=== PATIENT | male | born 1945 | race Caucasian/White ===

== ENCOUNTER 2018-01-10 08:30 | Emergency (ER) | payer MEDICARE, BC ==
[2018-01-10 08:58] VITALS: BP 120/60
--- NOTE | 2018-01-10 09:21 | EDM.PDOC ---
ED HPI GENERAL MEDICAL PROBLEM - General Chief Complaint: Skin Complaint Stated Complaint: tick bite Time Seen by Provider: 01/10/18 09:10 Source of Information: Reports: Patient History Limitations: Reports: No Limitations - History of Present Illness INITIAL COMMENTS - FREE TEXT/NARRATIVE: 72 yo male pulled a deer tick off of his upper back this morning that had been on for less than 12 hrs. Is concerned about a tiny black spot still present at the site of the tick attachment. Tetanus is UTD. Onset: Today Onset Date: 01/10/18 Duration: Hour(s):, Constant Location: Reports: Back Quality: Reports: Other (no pain) Severity: Mild Improves with: Reports: None Worsens with: Reports: None Context: Reports: Other (deer tick bite) Associated Symptoms: Reports: No Other Symptoms. 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 Dermatologic History: Reports: Other (See Below) Other Dermatologic History: history of tick bite and lymes disease 2005 - Past Surgical History Other Musculoskeletal Surgeries/Procedures:: 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 Social & Family History - Family History Family Medical History: Noncontributory - Tobacco Use Smoking Status *Q: Never Smoker - Caffeine Use Caffeine Use: Reports: Soda Other Caffeine Use: Pepsi once in a while - Alcohol Use Days Per Week of Alcohol Use: 7 Number of Drinks Per Day: 1 Total Drinks Per Week: 7 - Recreational Drug Use Recreational Drug Use: No ED ROS GENERAL - Review of Systems Review Of Systems: See Below Constitutional: Reports: No Symptoms HEENT: Reports: No Symptoms Respiratory: Reports: No Symptoms Cardiovascular: Reports: No Symptoms GI/Abdominal: Reports: No Symptoms : Reports: No Symptoms Musculoskeletal: Reports: No Symptoms Skin: Reports: Change in Color (tiny black spot at site of tick attachment.) Neurological: Reports: No Symptoms ED EXAM, SKIN/RASH Exam: See Below Exam Limited By: No Limitations General Appearance: Alert, WD/WN, No Apparent Distress Ears: Normal External Exam Nose: Normal Inspection, Normal Mucosa, No Blood Throat/Mouth: Normal Inspection, Normal Lips, Normal Oropharynx, Normal Voice Head: Atraumatic, Normocephalic Neck: Normal Inspection Respiratory/Chest: No Respiratory Distress, No Accessory Muscle Use Neurological: Alert, Oriented, CN II-XII Intact, Normal Cognition, No Motor/ Sensory Deficits Psychiatric: Normal Affect, Normal Mood Skin: Warm, Dry, Intact, Normal Color, No Rash, Other (tiny black spot at site of tick attachment.) Location, Skin: Back Characteristics: Erythematous (black spot has minimal surrounding redness.) Lymphatic: No Adenopathy Course - Vital Signs Last Recorded V/S: Last Vital Signs Temp 35.7 C 01/10/18 08:57 Pulse 74 01/10/18 08:57 Resp 14 01/10/18 08:57 BP 120/60 01/10/18 08:57 Pulse Ox 98 01/10/18 08:57 Departure - Departure Time of Disposition: 09:20 Disposition: Home, Self-Care 01 Condition: Good Clinical Impression: Tick bite of back Qualifiers: Encounter type: initial encounter Qualified Code(s): S30.860A - Insect bite ( nonvenomous) of lower back and pelvis, initial encounter; W57.XXXA - Bitten or stung by nonvenomous insect and other nonvenomous arthropods, initial encounter - Discharge Information Referrals: Hieu Palmer MD [Primary Care Provider] -
== END 2018-01-10 09:29 | disposition home or self-care (01) ==
LOC: JP.ED 08:30
DX: S20.469A Insect bite (nonvenomous) of unspecified back wall of thorax, initial encounter (principal); W57.XXXA Bitten or stung by nonvenomous insect and other nonvenomous arthropods, initial encounter
CPT/HCPCS: 99282

== ENCOUNTER 2019-01-21 22:38 | Emergency (ER) | payer MEDICARE, BC ==
[2019-01-21 22:56] VITALS: BP 143/76
[2019-01-21] MEDS ORDERED: Doxycycline 100 MG Cap PO ONE (23:07)
--- NOTE | 2019-01-21 23:10 | EDM.PDOC ---
ED HPI GENERAL MEDICAL PROBLEM - General Chief Complaint: Bite:Animal, Insect Stated Complaint: WOOD TICK Time Seen by Provider: 01/21/19 23:07 Source of Information: Reports: Patient, RN Notes Reviewed History Limitations: Reports: No Limitations - History of Present Illness INITIAL COMMENTS - FREE TEXT/NARRATIVE: 73-year-old gentleman presents emergency department today with a tick attached to his penis that he fell earlier today no symptoms at this time denies pain Pain Score (Numeric/FACES): 0 - Related Data Allergies Allergy/AdvReac Type Severity Reaction Status Date / Time No Known Allergies Allergy Verified 01/21/19 22:54 Home Meds: Home Meds NK [No Known Home Meds] 01/11/15 [History] Past Medical History HEENT History: Reports: Impaired Vision Genitourinary History: Reports: Prostate Disorder Musculoskeletal History: Reports: Other (See Below) Other Musculoskeletal History: 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 Dermatologic History: Reports: Other (See Below) Other Dermatologic History: history of tick bite and lymes disease 2005 - Infectious Disease History Infectious Disease History: Reports: Chicken Pox, Measles - Past Surgical History GI Surgical History: Reports: Appendectomy Musculoskeletal Surgical History: Reports: Other (See Below) Other Musculoskeletal Surgeries/Procedures:: 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 Social & Family History - Family History Family Medical History: Noncontributory - Tobacco Use Smoking Status *Q: Never Smoker - Caffeine Use Caffeine Use: Reports: Soda Other Caffeine Use: Pepsi once in a while - Recreational Drug Use Recreational Drug Use: No ED ROS GENERAL - Review of Systems Review Of Systems: See Below Skin: Reports: Wound ED EXAM, ANIMAL BITE - Physical Exam Exam: See Below Text/Narrative:: Examination the penis he does have a deer tick attached this is removed with a splinter forceps completely intact it is on the base of the penis Exam Limited By: No Limitations General Appearance: Alert, WD/WN, No Apparent Distress Course - Vital Signs Last Recorded V/S: Last Vital Signs Temp 98.5 F 01/21/19 22:56 Pulse 76 01/21/19 22:56 Resp 16 01/21/19 22:56 BP 143/76 H 01/21/19 22:56 Pulse Ox 96 01/21/19 22:56 - Orders/Labs/Meds Orders: Active Orders 24 hr Category Date Time Status Doxycycline [Vibramycin] Med 01/21/19 23:07 Once 200 mg PO ONETIME ONE Departure - Departure Time of Disposition: 23:09 Disposition: Home, Self-Care 01 Condition: Fair Clinical Impression: Tick bite Qualifiers: Encounter type: initial encounter Qualified Code(s): W57.XXXA - Bitten or stung by nonvenomous insect and other nonvenomous arthropods, initial encounter - Discharge Information Referrals: Talha Yang MD [Primary Care Provider] - Additional Instructions: Please followup with your primary care provider in 7-10 days if not better, please call return to the emergency department with worsening of symptoms. - My Orders Last 24 Hours: My Active Orders 01/21/19 23:07 Doxycycline [Vibramycin] 200 mg PO ONETIME ONE - Assessment/Plan Last 24 Hours: My Active Orders 01/21/19 23:07 Doxycycline [Vibramycin] 200 mg PO ONETIME ONE Plan: Assessment Acuity = acute Site and laterality = tick bite penis Etiology = Ixodes scapularis Manifestations = none Location of injury = Home Lab values = none Plan Treatment doxycycline 200 mg 1 follow-up primary care in 7-10 days if not better This note was dictated using [employer] voice recognition software please call with any questions on syntax or grammar.
== END 2019-01-21 23:19 | disposition home or self-care (01) ==
LOC: JP.ED 22:38
DX: S30.862A Insect bite (nonvenomous) of penis, initial encounter (principal); W57.XXXA Bitten or stung by nonvenomous insect and other nonvenomous arthropods, initial encounter
CPT/HCPCS: 99282; A9270

== ENCOUNTER 2020-12-25 16:46 | Emergency (ER) | payer MEDICARE, BC ==
[2020-12-25 17:38] VITALS: BP 156/86; PULSE 77
--- NOTE | 2020-12-25 17:54 | EDM.PDOC ---
ED HPI GENERAL MEDICAL PROBLEM - General Chief Complaint: Neurological Problem Stated Complaint: NAUSEA, DIZZY, SWEATING Time Seen by Provider: 12/25/20 17:53 Source of Information: Reports: Patient History Limitations: Reports: No Limitations - History of Present Illness INITIAL COMMENTS - FREE TEXT/NARRATIVE: Braydon presents today with complaints of not feeling right. 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 the loft was hot. He states he became dizzy, the room was moving, he had double vision, felt weak and laid down. He states he felt a little better after laying down for a few minutes on the floor and his friend opened some windows. He then got up, went down the stairs, had some cold water. He became nauseated, vomited. He states his friend then left and he went to his house, where he noticed he had slurred speech. His report slurred speech as well. He again did not feel well, double vision, nausea and lady down on the floor. He reports he now has a headache to the forehead 08/15. He denies any other vision changes, change in hearing. He denies LOC, his denies LOC. He stopped use of ASA September, stated it was okay per cardiology. He denies fever, chills, change in bowel/bladder or other concerns. 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 Dermatologic History: Reports: Other (See Below) Other Dermatologic History: history of tick bite and lymes disease 2005 and again since then - Infectious Disease History Infectious Disease History: Reports: Chicken Pox, Measles - Past Surgical History Cardiovascular Surgical History: Reports: Valve Replacement GI Surgical History: Reports: Appendectomy Musculoskeletal Surgical History: Reports: Other (See Below) Other Musculoskeletal Surgeries/Procedures:: 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 Social & Family History - Family History Family Medical History: No Pertinent Family History - Tobacco Use Tobacco Use Status *Q: Never Tobacco User - Caffeine Use Caffeine Use: Reports: None Other Caffeine Use: Pepsi once in a while - Recreational Drug Use Recreational Drug Use: No ED ROS GENERAL - Review of Systems Review Of Systems: See Below Constitutional: Reports: Weakness HEENT: Reports: Vision Change (double vision that comes and goes) Respiratory: Reports: No Symptoms Cardiovascular: Reports: No Symptoms Endocrine: Reports: No Symptoms GI/Abdominal: Reports: Nausea, Vomiting : Reports: No Symptoms Musculoskeletal: Reports: No Symptoms Skin: Reports: No Symptoms Neurological: Reports: Dizziness, Headache, Weakness, Change in Speech, Other (pre-syncopal) Psychiatric: Reports: No Symptoms Hematologic/Lymphatic: Reports: No Symptoms Immunologic: Reports: No Symptoms ED EXAM, DIZZINESS - Physical Exam Exam: See Below Exam Limited By: No Limitations General Appearance: Alert, WD/WN, No Apparent Distress Eye Exam: Bilateral Eye: EOMI, Normal Inspection, PERRL Ears: Normal External Exam, Normal Canal, Hearing Grossly Normal, TM Obscured by Cerumen (bilateral ears) Nose: Normal Inspection, Normal Mucosa, No Blood Throat/Mouth: Normal Inspection, Normal Lips, Normal Gums, Normal Voice, No Airway Compromise Head Exam: Atraumatic, Normocephalic Vertigo: No: reproducible Neck: Normal Inspection, Supple, Non-Tender, Full Range of Motion Respiratory/Chest: No Respiratory Distress, Lungs Clear, Normal Breath Sounds, No Accessory Muscle Use, Chest Non-Tender. No: Crackles, Rales, Rhonchi, Wheezing Cardiovascular: Normal Peripheral Pulses, Regular Rate, Rhythm, No Edema, No Gallop, No Murmur, No Rub, Other (loud heart tones/valve) GI/Abdominal: Normal Bowel Sounds, Soft, Non-Tender, No Organomegaly, No Distention, No Mass. No: Guarding, Rigid, Rebound, Tender Neurological: Alert, Normal Mood/Affect, Normal Plantar Flexion, Normal Gait, Normal Reflexes, No Motor/Sensory Deficits DTR: 2+: Patella (R), Patella (L) Back Exam: Normal Inspection, Full Range of Motion. No: CVA Tenderness (R), CVA Tenderness (L) Extremities: Normal Inspection, Normal Range of Motion, Non-Tender, No Pedal Edema, Normal Capillary Refill Psychiatric: Normal Affect, Flat Affect Skin Exam: Warm, Dry, Intact, Normal Color, No Rash #1 Interpretation EKG Date: 12/25/20 Time: 17:53 Rhythm: NSR Rate (Beats/Min): 80 [place]: Normal P-Wave: Present QRS: Normal ST-T: Normal QT: Normal Course - Vital Signs Last Recorded V/S: Last Vital Signs Temp 36.8 C 12/25/20 16:59 Pulse 77 12/25/20 17:25 Resp 12 12/25/20 17:25 BP 156/86 H 12/25/20 17:25 Pulse Ox 99 12/25/20 17:25 - Orders/Labs/Meds Orders: Active Orders 24 hr Category Date Time Status EKG 12 Lead [EK] Routine Ther 12/25/20 17:53 Ordered Labs: Laboratory Tests 12/25/20 12/25/20 12/25/20 Range/Units 18:04 18:55 18:55 WBC 8.4 (4.5-11.0) K/uL RBC 4.96 (4.30-5.90) M/uL Hgb 14.8 (12.0-15.0) g/dL Hct 44.9 (40.0-54.0) % MCV 91 (80-98) fL MCH 30 (27-31) pg MCHC 33 (32-36) % Plt Count 162 (150-400) K/uL Neut % (Auto) 71.1 H (36-66) % Lymph % (Auto) 16.3 L (24-44) % [place] % (Auto) 11.9 H (2-6) % Eos % (Auto) 0.6 L (2-4) % Baso % (Auto) 0.1 (0-1) % PT (9.5-12.0) sec INR (0.80-1.20) APTT (27.0-36.0) sec Sodium 141 (140-148) mmol/L Potassium 4.2 (3.6-5.2) mmol/L Chloride 103 (100-108) mmol/L Carbon Dioxide 30 (21-32) mmol/L Anion Gap 8.2 (5.0-14.0) mmol/L BUN 28 H (7-18) mg/dL Creatinine 1.3 (0.8-1.3) mg/dL Est Cr Clr Drug Dosing 50.68 mL/min Estimated GFR (MDRD) 54 L (>60) Glucose 97 (74-106) mg/dL Calcium 8.8 (8.5-10.1) mg/dL Urine Color Yellow (YELLOW) Urine Appearance Clear (CLEAR) Urine pH 7.0 (5.0-8.0) Ur Specific [place] 1.025 (1.008-1.030) Urine Protein Negative (NEGATIVE) mg/dL Urine Glucose (UA) Negative (NEGATIVE) mg/dL Urine Ketones Negative (NEGATIVE) mg/dL Urine Occult Blood Negative (NEGATIVE) Urine Nitrite Negative (NEGATIVE) Urine Bilirubin Negative (NEGATIVE) Urine Urobilinogen 0.2 (0.2-1.0) EU/dL Ur Leukocyte Esterase Negative (NEGATIVE) Urine RBC 0-5 (0-5) Urine WBC 0-5 (0-5) Ur Epithelial Cells Rare Amorphous Sediment Not seen Urine Bacteria Not seen Urine Mucus Not seen 12/25/20 Range/Units 18:55 WBC (4.5-11.0) K/uL RBC (4.30-5.90) M/uL Hgb (12.0-15.0) g/dL Hct (40.0-54.0) % MCV (80-98) fL MCH (27-31) pg MCHC (32-36) % Plt Count (150-400) K/uL Neut % (Auto) (36-66) % Lymph % (Auto) (24-44) % [place] % (Auto) (2-6) % Eos % (Auto) (2-4) % Baso % (Auto) (0-1) % PT 10.9 (9.5-12.0) sec INR 1.00 (0.80-1.20) APTT 24.7 L (27.0-36.0) sec Sodium (140-148) mmol/L Potassium (3.6-5.2) mmol/L Chloride (100-108) mmol/L Carbon Dioxide (21-32) mmol/L Anion Gap (5.0-14.0) mmol/L BUN (7-18) mg/dL Creatinine (0.8-1.3) mg/dL Est Cr Clr Drug Dosing mL/min Estimated GFR (MDRD) (>60) Glucose (74-106) mg/dL Calcium (8.5-10.1) mg/dL Urine Color (YELLOW) Urine Appearance (CLEAR) Urine pH (5.0-8.0) Ur Specific [place] (1.008-1.030) Urine Protein (NEGATIVE) mg/dL Urine Glucose (UA) (NEGATIVE) mg/dL Urine Ketones (NEGATIVE) mg/dL Urine Occult Blood (NEGATIVE) Urine Nitrite (NEGATIVE) Urine Bilirubin (NEGATIVE) Urine Urobilinogen (0.2-1.0) EU/dL Ur Leukocyte Esterase (NEGATIVE) Urine RBC (0-5) Urine WBC (0-5) Ur Epithelial Cells Amorphous Sediment Urine Bacteria Urine Mucus Patient lab work reviewed, mild dehydration noted. No other acute findings. Meds: Medications Discontinued Medications Generic Name Dose Route Start Last Admin Trade Name Freq PRN Reason Stop Dose Admin Sodium Chloride 1,000 mls @ 150 mls/hr 12/25/20 18:30 12/25/20 18:36 Normal Saline IV 150 mls/hr ASDIRECTED ZUHAIR Administration Ondansetron HCl 4 mg 12/25/20 18:23 Ondansetron 4 Mg/2 Ml Sdv IVPUSH 12/25/20 18:24 ONETIME ONE - Radiology Interpretation Free Text/Narrative:: CT head without IV contrast shows no acute findings. - Re-Assessments/Exams Free Text/Narrative Re-Assessment/Exam: 12/25/20 19:25 Discussed lab work, negative head CT with Dr. Rose, patient and his . They are all in agreement with plan. We will provide him 1L normal saline for hydration. He will take ASA 325mg PO daily and follow up with his primary in 7 to 10 days. Patient in agreement with plan. Departure - Departure Time of Disposition: 19:43 Disposition: DC/Tfer to [facility] Condition: Good Clinical Impression: Dehydration, TIA (transient ischemic attack) - Discharge Information *PRESCRIPTION DRUG MONITORING PROGRAM REVIEWED*: No *COPY OF PRESCRIPTION DRUG MONITORING REPORT IN PATIENT ARMANDO: No Instructions: Transient Ischemic Attack, [id number], Dehydration, Adult, [id number] Referrals: Talha Yang MD [Primary Care Provider] - Forms: ED Department Discharge Additional Instructions: You have been evaluated and treated for TIA and dehydration. Take ASA 325mg by mouth daily with food. Work on increased water intake to 80-100oz per day to stay hydrated. Follow up with Dr. Yang and neurology as he determines. Return at any time for issues, worsening or concerns. Sepsis Event Note (ED) - Evaluation Sepsis Screening Result: No Definite Risk - Focused Exam Vital Signs: Vital Signs Temp Pulse Resp BP Pulse Ox 12/25/20 17:25 77 12 156/86 H 99 12/25/20 16:59 36.8 C 67 13 141/61 H 99 - My Orders Last 24 Hours: My Active Orders 12/25/20 17:53 EKG 12 Lead [EK] Routine - Assessment/Plan Last 24 Hours: My Active Orders 12/25/20 17:53 EKG 12 Lead [EK] Routine Assessment:: Dehydration, TIA (transient ischemic attack) Plan: Patient evaluated and treated for TIA and dehydration. Take ASA 325mg by mouth daily with food. Work on increased water intake to 80-100oz per day to stay hydrated. Follow up with Dr. Yang and neurology as he determines. Return at any time for issues, worsening or concerns.
[2020-12-25] MEDS ORDERED: Ondansetron 4 MG/2 ML SDV IVPUSH ONE (18:23)
[2020-12-25] MEDS ORDERED: Sodium Chloride 0.9% 1,000 ML IV SCH (18:30)
--- NOTE | 2020-12-25 19:11 | CRLCT ---
Indication: Dizziness. Pre syncopal episode. Double vision. Technique: Multiple contiguous axial images were obtained from the skullbase to the vertex without intravenous contrast enhancement. Please note that all CT scans at this facility use dose modulation, iterative reconstruction, and/or weight-based dosing when appropriate to reduce radiation dose to as low as reasonably achievable. Comparison: None Findings: The ventricles are symmetric and normal in size and morphology. The basal cisterns are widely patent. No intra-axial or extra-axial hemorrhage is identified. No mass, mass effect or midline shift is seen. The bony calvarium is intact. The visualized paranasal sinuses and mastoid air cells are clear. Impression: No acute intracranial process Please note that all CT scans at this facility use dose modulation, iterative reconstruction, and/or weight-based dosing when appropriate to reduce radiation dose to as low as reasonably achievable. Dictated by Paty Victoria MD @ 12/25/2020 7:10:[address] Paty Victoria @ Dec 25 2020 7:10PM
== END 2020-12-25 20:23 ==
LOC: JP.ED 16:46
DX: G45.9 Transient cerebral ischemic attack, unspecified (principal); E86.0 Dehydration
CPT/HCPCS: 36415; 70450; 80048; 81001; 85025; 85610; 85730; 93005; 99285; J7030

== ENCOUNTER 2021-02-12 10:42 | Emergency (ER) | payer MEDICARE, BC ==
[2021-02-12 11:01] VITALS: BP 142/79; PULSE 71
--- NOTE | 2021-02-12 11:31 | EDM.PDOC ---
ED HPI GENERAL MEDICAL PROBLEM - General Chief Complaint: Bite:Animal, Insect Stated Complaint: TICK ON BIG TOE Time Seen by Provider: 02/12/21 11:30 Source of Information: Reports: Patient, RN Notes Reviewed History Limitations: Reports: No Limitations - History of Present Illness INITIAL COMMENTS - FREE TEXT/NARRATIVE: Braydon presents today with complaints of an engorged tick to left 2nd toe for an unknown amount of time. He states he pulled off the tick but his toe is red and swollen. He denies any significant pain. He denies fever, chills, joint aches, nausea, vomiting, change in bowel/bladder or other concerns. engorged brown tick present in zip-lock bag. 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 Dermatologic History: Reports: Other (See Below) Other Dermatologic History: history of tick bite and lymes disease 2005 and again since then - Infectious Disease History Infectious Disease History: Reports: Chicken Pox, Measles - Past Surgical History Cardiovascular Surgical History: Reports: Valve Replacement GI Surgical History: Reports: Appendectomy Musculoskeletal Surgical History: Reports: Other (See Below) Other Musculoskeletal Surgeries/Procedures:: 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 Social & Family History - Family History Family Medical History: No Pertinent Family History - Tobacco Use Tobacco Use Status *Q: Never Tobacco User - Caffeine Use Caffeine Use: Reports: None Other Caffeine Use: Pepsi once in a while ED ROS GENERAL - Review of Systems Review Of Systems: See Below Constitutional: Reports: No Symptoms HEENT: Reports: No Symptoms Respiratory: Reports: No Symptoms Cardiovascular: Reports: No Symptoms Endocrine: Reports: No Symptoms GI/Abdominal: Reports: No Symptoms : Reports: No Symptoms Musculoskeletal: Reports: No Symptoms Skin: Reports: Erythema (left 2nd toe to top of foot at site of tick bite), Other (edema noted to left 2nd toe/foot) Neurological: Reports: No Symptoms Psychiatric: Reports: No Symptoms Hematologic/Lymphatic: Reports: No Symptoms Immunologic: Reports: No Symptoms ED EXAM, ANIMAL BITE - Physical Exam Exam: See Below Exam Limited By: No Limitations General Appearance: Alert, WD/WN, No Apparent Distress Head: Atraumatic, Normocephalic Cardiovascular: Normal Peripheral Pulses, Regular Rate, Rhythm, No Edema, No Gallop, No Murmur, No Rub Peripheral Pulses: 4+: Posterior Tibial (L), Posterior Tibial (R), Dorsalis Pedis (L), Dorsalis Pedis (R) Extremities: Normal Range of Motion, Normal Capillary Refill, Increased Warmth, Redness (to left 2nd toe extending to dorsum of foot with warmth, edema) Neurological: Alert, Oriented, CN II-XII Intact, Normal Cognition, Normal Gait, No Motor/Sensory Deficits Psychiatric: Normal Affect, Normal Mood Skin Exam: Warm/Dry, Other (erythema as described above. ) Lymphatic: No Adenopathy ED ANIMAL BITE PROCEDURES - Foreign Body Removal Indication:: Tick bite left 2nd toe with edema, erythema extending to dorsum of left foot. Magnification used to examine tick bite. Noted small black part of tick head imbedded in lateral aspect of 2nd left toe. Area cleansed with alcohol, piece of tick removed with fine forceps, patient tolerated well. Anesthesia Type: None Complications:: No Course - Vital Signs Last Recorded V/S: Last Vital Signs Temp 35.9 C L 02/12/21 11:00 Pulse 71 02/12/21 11:00 Resp 14 02/12/21 11:00 BP 142/79 H 02/12/21 11:00 Pulse Ox 97 02/12/21 11:00 Departure - Departure Time of Disposition: 11:51 Disposition: Home, Self-Care 01 Condition: Good Clinical Impression: Cellulitis Tick bite Qualifiers: Encounter type: initial encounter Qualified Code(s): W57.XXXA - Bitten or stung by nonvenomous insect and other nonvenomous arthropods, initial encounter - Discharge Information *PRESCRIPTION DRUG MONITORING PROGRAM REVIEWED*: No *COPY OF PRESCRIPTION DRUG MONITORING REPORT IN PATIENT ARMANDO: No Instructions: Tick Bite Information, Adult, [id number], Cellulitis, Adult, Insect Bite, Adult, [id number] Referrals: Talha Yang MD [Primary Care Provider] - Forms: ED Department Discharge Additional Instructions: Tick bite with cellulitis. Small part of tick removed from site. Keep area clean and dry. Avoid water. Take doxycycline 100mg by mouth twice a day for 14 days. Return for any worsening, issues or concerns. Follow up with primary as needed. Sepsis Event Note (ED) - Evaluation Sepsis Screening Result: No Definite Risk - Focused Exam Vital Signs: Vital Signs Temp Pulse Resp BP Pulse Ox 02/12/21 11:00 35.9 C L 71 14 142/79 H 97 - Assessment/Plan Assessment:: Cellulitis Tick bite Removal of remaining tick head from 2nd left lateral aspect toe Plan: Tick bite with cellulitis. Small part of tick removed from site. Keep area clean and dry. Avoid water. Take doxycycline 100mg by mouth twice a day for 14 days. Return for any worsening, issues or concerns. Follow up with primary as needed
== END 2021-02-12 11:59 | disposition home or self-care (01) ==
LOC: JP.ED 10:42
DX: S90.465A Insect bite (nonvenomous), left lesser toe(s), initial encounter (principal); L03.032 Cellulitis of left toe; R60.0 Localized edema; W57.XXXA Bitten or stung by nonvenomous insect and other nonvenomous arthropods, initial encounter
CPT/HCPCS: 99282

== ENCOUNTER 2021-09-07 16:53 | Emergency (ER) | payer MEDICARE, BC ==
[2021-09-07] MEDS ORDERED: Bupivacaine 0.5% 10 ML SDV INJECT ONE (17:13)
[2021-09-07 17:14] VITALS: BP 171/79; PULSE 85
[2021-09-07] MEDS ORDERED: Bacitracin Oint 1 GM U/D Packet TOP ONE (17:58)
== END 2021-09-07 18:32 | disposition home or self-care (01) ==
LOC: JP.ED 16:53
DX: S68.117A Complete traumatic metacarpophalangeal amputation of left little finger, initial encounter (principal); Z86.73 Personal history of transient ischemic attack (TIA), and cerebral infarction without residual deficits; W23.0XXA Caught, crushed, jammed, or pinched between moving objects, initial encounter
CPT/HCPCS: 12002; 73140; 99283; J3490

== ENCOUNTER 2022-11-17 11:32 | Emergency (ER) | payer MEDICARE, BC ==
[2022-11-17] MEDS ORDERED: Sodium Chloride 0.9% 10 ML Syringe FLUSH PRN (11:48)
[2022-11-17 11:50] VITALS: BP 112/48; PULSE 57
== END 2022-11-17 12:42 | disposition home or self-care (01) ==
LOC: JP.ED 11:32
DX: R10.13 Epigastric pain (principal); R55 Syncope and collapse
CPT/HCPCS: 99284; J3490; 99283

== ENCOUNTER 2022-11-28 11:43 | Emergency (ER) | payer MEDICARE, BC ==
[2022-11-28 13:22] VITALS: BP 141/67; PULSE 82
== END 2022-11-28 13:42 | disposition home or self-care (01) ==
LOC: JP.ED 11:43
DX: B02.9 Zoster without complications (principal); Z87.891 Personal history of nicotine dependence
CPT/HCPCS: 99283

== ENCOUNTER 2023-02-10 21:20 | Emergency (ER) | payer MEDICARE, BC ==
[2023-02-10 23:12] VITALS: BP 131/57; PULSE 68
== END 2023-02-10 23:40 | disposition home or self-care (01) ==
LOC: JP.ED 21:20
DX: S40.262A Insect bite (nonvenomous) of left shoulder, initial encounter (principal); Z86.73 Personal history of transient ischemic attack (TIA), and cerebral infarction without residual deficits; W57.XXXA Bitten or stung by nonvenomous insect and other nonvenomous arthropods, initial encounter
CPT/HCPCS: 10120; 99281

== ENCOUNTER 2024-01-28 19:28 | Emergency (ER) | payer MEDICARE, BC ==
[2024-01-28 19:56] VITALS: BP 133/64; PULSE 73
[2024-01-28] MEDS: Doxycycline 100 MG Cap PO ONE (20:23)
== END 2024-01-28 20:30 | disposition home or self-care (01) ==
LOC: JP.ED 19:28
DX: S30.860A Insect bite (nonvenomous) of lower back and pelvis, initial encounter (principal); Z90.49 Acquired absence of other specified parts of digestive tract; W57.XXXA Bitten or stung by nonvenomous insect and other nonvenomous arthropods, initial encounter
CPT/HCPCS: 99282; A9270; 99283

== ENCOUNTER 2024-11-26 22:55 | Emergency (ER) | payer MEDICARE, BC ==
[2024-11-26 23:04] VITALS: BP 130/54; PULSE 74
[2024-11-26] MEDS: Doxycycline 100 MG Cap PO ONE (23:33)
== END 2024-11-26 23:34 | disposition home or self-care (01) ==
LOC: JP.ED 22:55
DX: S40.862A Insect bite (nonvenomous) of left upper arm, initial encounter (principal); Z90.49 Acquired absence of other specified parts of digestive tract; W57.XXXA Bitten or stung by nonvenomous insect and other nonvenomous arthropods, initial encounter
CPT/HCPCS: 99281; A9270; 99283